=== PATIENT | female | born 1985 | race Hispanic/Latino ===

== ENCOUNTER → 2016-05-26 | Day surgery (SDC) | payer OTHER ==
--- NOTE | 2016-05-26 12:40 | Operative Report ---
Operative/Inv Procedure Report Surgery Date: 05/26/16 Name of Procedure: LEFT URETEROSCOPY AND LASER LITHOTRIPSY, STENT PLACEMENT Pre-Operative Diagnosis: LEFT RENAL STONE Post-Operative Diagnosis: SAME Estimated Blood Loss: scant Surgeon/Military Technology Manager: RAFA ERICKSON MD Anesthesia: laryngeal mask airway Drains: 6X28 STENT Specimens: stone fragments Complications: NONE Condition: STABLE Operative Indication: LERFT RENAL COLIC Operative/Procedure Note Note: This an operative dictation on patient Tanisha Sousa. She was identified in the holding area and consented for left ureteroscopy with laser lithotripsy and possible stent placement possible retropyelogram. Risks benefits and alternatives of the surgery were given and all questions were answered. Patient was taken to the operating room placed on the operating table in supine position. SCDs were placed and IV antibiotics were given. She was placed under LMA anesthesia. Timeout was performed prior to the patient being placed under anesthesia. She was placed in the dorsolithotomy position and prepped and draped in standard sterile fashion. Cystoscopy was performed bladder was globally inspected. Ureteral orifices were in their normal anatomic position and there were no lesions or abnormalities noted. The left ureteral orifice was cannulated with a 0.038 guidewire with the glide tip. This was placed to the renal pelvis under fluoroscopic guidance. A dual-lumen catheter was then used to place the superstiff wire alongside the 0.038 guidewire. A ureteral access sheath was then placed over the 0.038 guidewire and the superstiff was clamped to the sheath of the sterile sheets. The digital ureteroscope was then placed up the 0.038 wire into the renal pelvis. Wire was removed. The renal pelvis was examined from the upper pole to the lower pole sequentially and each calyx. There were Ronald plaques within several the calyces. A small 3 mm stone in the midpole was removed with the 0 tip basket. The 6 mm stone was found to be in the lower pole. This was moved up into the upper pole and then blasted the 200 laser fiber to smaller fragments. The small fragments were then removed with the 0 tip basket sequentially. The remaining dusting in very fine stone fragments that were unable to be grasped with the basket were irrigated out to the 20 mL syringe. The calyces were examined once again and no large fragments were found. The digital ureteroscope and the ureteral access sheath were removed and the ureter was examined on exit. There were no other stone fragments seen. The cystoscope was placed back into the bladder and the remaining superstiff wire was then used to place a 6 x 28 cm ureteral stent. Seen to be in good position and the wire was removed. The string was still attached and this was taped to the patient's inner thigh on the left side with Tegaderm. Patient was cleaned and the Betadine solution prior to doing so. Patient tolerated procedure well. Findings: LEFT 6MM RENAL STONE Discharge Disposition: PACU
--- NOTE | 2016-05-26 17:50 | RADIOLOGY REPORT ---
EXAMINATION: XR ABDOMEN CLINICAL INDICATION: Patient requiring left sided ureteroscopy, lithotripsy and stent placement in the operating room. COMPARISON: None TECHNIQUE: C-arm fluoroscopic imaging of the left abdomen was utilized by Dr. Oreilly. FLUOROSCOPY TIME: 8.3 seconds. DOSE: 86.02 mrad NUMBER OF IMAGES SAVED: 5 FINDINGS: Please refer to the operative report regarding the indications, intraoperative findings and interventions performed. There appears to be a calculus at the upper pole of the left kidney. Left sided ureteroscopy and lithotripsy were performed. A left ureteral stent was deployed. IMPRESSION: C-arm fluoroscopic imaging assistance was provided to the operating room.
== END ==
LOC: STS 01:41
DX: N20.0 Calculus of kidney (principal); Z87.442 Personal history of urinary calculi; R10.12 Left upper quadrant pain; F17.200 Nicotine dependence, unspecified, uncomplicated
CPT/HCPCS: 74000; 81025; 82355; C2617; J0690; J2250